=== PATIENT | female | born 1985 | race Caucasian/White ===

== ENCOUNTER → 2024-12-19 09:44 | Outpatient (BNVA) | payer MEDICAID, SELFPAY | PROVIDERS: Visit Provider Podiatrist Foot & Ankle Surgery | DX: M79.671 Pain in right foot (principal); M79.672 Pain in left foot; Q66.71 Congenital pes cavus, right foot; Q66.72 Congenital pes cavus, left foot; M77.41 Metatarsalgia, right foot; M77.42 Metatarsalgia, left foot; Q82.8 Other specified congenital malformations of skin | CPT/HCPCS: 73630 ==

== ENCOUNTER → 2025-03-20 08:26 | Outpatient (BNVA) | payer MEDICAID, SELFPAY | PROVIDERS: Visit Provider Podiatrist Foot & Ankle Surgery | DX: L84 Corns and callosities (principal); M77.41 Metatarsalgia, right foot; M77.42 Metatarsalgia, left foot; Q82.8 Other specified congenital malformations of skin; Q66.71 Congenital pes cavus, right foot; Q66.72 Congenital pes cavus, left foot | CPT/HCPCS: 99213 ==